=== PATIENT | female | born 1970 | race Caucasian/White ===

== ENCOUNTER 2017-07-16 23:41 | Emergency (ER) | payer BC ==
[~2017-07-16] VITALS: Ht 165.1 cm; Wt 92.0 kg
[~2017-07-16 23:41] MED LIST: IBUP-40
[2017-07-16 23:46] VITALS: Ht 165.1 cm; Wt 92.0 kg
[2017-07-17] MEDS ORDERED: METHYLPREDNISOLONE 125 MG INJ IM ONE (01:30)
[2017-07-17] MEDS ORDERED: DIPHENHYDRAMINE 50 MG INJ IM ONE (01:30)
[2017-07-17] MEDS ORDERED: BEN25 PO (01:33)
[2017-07-17] MEDS ORDERED: RANI150T9 PO (01:33)
[2017-07-17] MEDS ORDERED: PRED20TA PO (01:33)
--- NOTE | 2017-07-17 01:45 | ERD ---
ER Documentation Chief Complaint Chief Complaint PT WAS "WASHING FACE AND SOAP GOT IN HER EYE". NOTED SWELLING TO LEFT EYE. HPI 47 year old female comes in with left eye swelling after washing her eye with Dove soap around 4-5 hours ago. Patient states that she has itching and localized swelling the upper and lower eyelid as well as the conjunctival swelling. Patient states she has uses before but has never gone into her eye. She has no difficulty seeing. She has no other swelling besides the eye. She is no difficulty reading. Has no allergies that she knows of. ROS All systems reviewed and are negative except as per history of present illness. Medications Home Meds Active Scripts Ranitidine Hcl* (Zantac*) 150 Mg Tablet, 150 MG PO BID Y for EPIGASTRIC PAIN, # 10 TAB Prov:JEANIE THIBODEAUX PA-C 07/17/17 Diphenhydramine Hcl* (Benadryl*) 25 Mg Cap, 25 MG PO Q6, #30 CAP Prov:JEANIE THIBODEAUX PA-C 07/17/17 Prednisone* (Prednisone*) 20 Mg Tab, 40 MG PO DAILY for 4 Days, TAB Prov:JEANIE THIBODEAUX PA-C 07/17/17 Reported Medications Ibuprofen (Advil) 200 Mg Tablet, DIRECTED 09/08/11 [unknown] No Conflict Check 01/01/11 Allergies Allergies: Coded Allergies: No Known Drug Allergies (Verified Allergy, Mild, 09/08/11) PMhx/Soc Medical and Surgical Hx: pt denies Surgical Hx History of Surgery: No Anesthesia Reaction: No Hx Neurological Disorder: No Hx Respiratory Disorders: No Hx Cardiac Disorders: Yes (HTN) Hx Psychiatric Problems: No Hx Miscellaneous Medical Probl: No Hx Alcohol Use: No Hx Substance Use: No Hx Tobacco Use: No Smoking Status: Never smoker Physical Exam Vitals Vital Signs Date Time Temp Pulse Resp B/P Pulse Ox O2 Delivery O2 Flow Rate FiO2 07/16/17 23:46 98.0 81 18 182/90 97 Physical Exam General: Well-developed, well-nourished. The patient appears in no acute distress. HEENT: Head is normocephalic, atraumatic. No scleral icterus. There is significant swelling to the left upper lower eyelids. There is ecchymosis, no injection, no hyphema, no drainage. Extraocular movements intact, eyes are Nena. Neck: Supple. Nontender. Lungs: Clear to auscultation. Normal air movement. Heart: Regular rate and rhythm. S1 and S2 are normal. No murmurs, gallops, or rubs. Abdomen: Nondistended. Extremities: No clubbing or cyanosis. Moving extremities x 4. No weakness. Neurologic: Alert and oriented 3. No focal deficits. Normal speech and gait. Skin: Normal turgor. No rash or lesions. Results 24 hrs Current Medications Medications (Trade) Dose Ordered Sig/Julian Route PRN Reason Start Time Stop Time Status Last Admin Dose Admin Methylprednisolone Sodium Succinate (Solu-Medrol) 125 mg ONCE ONCE IM 07/17/17 01:30 07/17/17 01:31 DC 07/17/17 01:35 Diphenhydramine HCl (Benadryl) 50 mg ONCE ONCE IM 07/17/17 01:30 07/17/17 01:31 DC 07/17/17 01:35 Procedures/MDM 39-year-old female comes in with left eye swelling, ecchymosis and most likely a local contact irritation allergy reaction. The patient was given Solu-Medrol and Benadryl emergency department, will be given prednisone, Benadryl and Zantac to continue. There is no evidence of infection, this happened acutely after she washed her eye. There are no signs of orbital or periorbital cellulitis, globe rupture, hyphema, hypopyon, iritis, conjunctivitis. Departure Diagnosis: Primary Impression: Allergic reaction Condition: Good Patient Instructions: Allergic Reaction, Other (Local) JEANIE THIBODEAUX PA-C Jul 17, 2017 01:45
== END 2017-07-17 02:39 | disposition home or self-care (01) ==
LOC: FTE 23:41
DX: H02.844 Edema of left upper eyelid (principal); I10 Essential (primary) hypertension
CPT/HCPCS: 96372; 99284; J1200; J2930